=== PATIENT | male | born 1960 | race Caucasian/White ===

== ENCOUNTER 2017-02-02 10:55 | Day surgery (SDC) | payer OTHER ==
[~2017-02-02] VITALS: Ht 208.3 cm; Wt 95.2 kg
[~2017-02-02 10:55] MED LIST: 0.9% Sodium Chloride 1,000 ML IV PRN; LANS15TA3 PO; Sodium Chloride LOK Flush 10 mL Syringe IV PRN; fentaNYL-PF 50 mCg/mL 2 mL Inj IVPUSH PRN
[2017-02-02 12:50] VITALS: BP 110/76; PULSE 88; RESP 16; O2SAT 98
--- NOTE | 2017-02-02 13:45 | PCM.ENDEGD ---
EGD Date of Service: Feb 02, 2017 Physician Neo Stewart MD Pre Procedure Diagnosis: Reflux despite PPI Post Procedure Dx & Findings: Esophagitis Procedure Esophagogastroduodenoscopy PROCEDURE IN DETAIL: After proper sedation, Olympus video endoscope was inserted into patient's mouth and esophagus was successfully intubated. Scope introduced esophagus. Esophagus showed normal shiny whitish mucosa consistent with squamous cell component. Z line was irregular at 43 cm from the incisors. Also at the Z line , there was evidence of edema redness and some scarring. Biopsies obtained. Scope further advanced to the stomach. Stomach showed normal shiny mucosa with normal appearing rugae folds without any ulcer mass erosion. Cardia fundus body antrum pylorus were all visualized. Retroflexion was done. Stomach was easily inflated and deflatable using air. Scope further events to the distal duodenum. Duodenum revealed normal villous structures with normal appearing folds without any mass ulcer erosion. Impression Esophagitis Recommendation Continue PPI Follow-up in the GI clinic. Presedation Assessment Risks and Benefits Informed consent was obtained from the patient after all risks and benefits including but not limited to drug reaction, infection, pain, bleeding, perforation, as well as alternatives were discussed. Patient monitoring Continuous pulse oximetry, cardiac monitoring, blood pressure monitoring, IV access, and oxygen at 2L per nasal cannula. Periprocedural Fentanyl: Fentanyl 125mcg Incrementally Midazolam: Midazolam 6mg Incrementally Complications There were no periprocedural complications identified. Post Procedure Plan Post Procedure Recommendations 1. Restrict activities today. 2. Resume normal activities in the morning. 3. Resume medications. 4. GERD behavioral modification: - Avoid fatty, acidic, spicy, large meals - Do not lie down after meals - Do not eat or drink anything for at least 2 1/2 hours before going to bed at night - Discontinue tobacco and alcohol - Decrease or avoid caffeine - Avoid chocolate and mints - Decrease weight - Avoid aspirin and non steroidal anti-inflammatory agents (NSAID) such as Aleve, Advil, Mobic, Naproxen, Ibuprofen, etc 5. Add proton pump inhibitor. Take 30 minutes before 1st meal of the day. 6. Patient informed of normal post procedure side effects as bloating, drowsiness, blood streaking in the stool 7. If gastric biopsy reveal H.pylori, continue with appropriate treatment 8. If small bowel biopsy reveals celiac, continue with appropriate treatment 9. Please don't hesitate to call me with any questions Neo Stewart MD Feb 02, 2017 13:45
--- NOTE | 2017-02-02 14:04 | PCM.ENDCOL ---
Colonoscopy Date of Service: Feb 02, 2017 Physician Neo Stewart MD Pre Procedure Diagnosis: Screening Post Procedure Dx & Findings: Polyp hemorrhoids diverticuli Procedure Colonoscopy PROCEDURE IN DETAIL: Prep adequate Withdrawal time 11 minutes After unremarkable rectal examination the Olympus video colonoscope was inserted patient's anal canal and was advanced to cecum. Landmarks were identified including the ileocecal valve and appendiceal orifice. Scope was withdrawn systematically. Visualized colonic mucosa showed healthy shiny mucosa with normal healthy-appearing vasculature. In the sigmoid colon, there was a 1 mm polyp which was removed completely using hot snare. From the sigmoid colon to the descending colon, there were several needing sized diverticuli. Also to the ascending colon, there were isolated diverticuli small size. In the rectum retroflexion was done which showed hemorrhoids. Anal canal was inspected carefully on the way out and hemorrhoids noted. Impression Polyp 1 status post complete removal Diverticuli Hemorrhoids Recommendation Repeat colonoscopy in 3 years Diverticular diet Presedation Assessment Risks and Benefits Informed consent was obtained from the patient after all risks and benefits including but not limited to drug reaction, infection, pain, bleeding, perforation, as well as alternatives were discussed. Patient monitoring Continuous pulse oximetry, cardiac monitoring, blood pressure monitoring, IV access, and oxygen at 2L per nasal cannula. Periprocedural Fentanyl: Fentanyl 50mcg Incrementally Midazolam: Midazolam 1mg Incrementally Complications There were no periprocedural complications identified. Post Procedure Plan Post Procedure Recommendations 1. Restrict activities today. 2. Resume normal activities in the morning. 3. Resume medications. 4. Patient informed of normal post procedure side effects as bloating, drowsiness, blood streaking in the stool. 5. average risk CRCS. If colon polyps come back as: -Hyperplastic- can repeat colonoscopy in 10 years -Tubular adenoma- repeat colonoscopy in 5 years -Tubulovillous/villous adenoma- repeat colonoscopy in 3 years -If any dysplasia- return to clinic as soon as possible 6. Please don't hesitate to call me with any questions. Neo Stewart MD Feb 02, 2017 14:04
[2017-02-02 14:10] VITALS: BP 110/73; PULSE 69; RESP 16; O2SAT 96
[2017-02-02 14:23] VITALS: BP 103/67; PULSE 66; RESP 16; O2SAT 94
--- NOTE | 2017-02-06 15:24 | PATH ---
SURGICAL PATHOLOGY Attending Physician:Neo Stewart M.D. CASE STATUS: Signed Out PATIENT NAME: MARK ROACH PID: [id number] : 1960 DATE COLLECTED:02/02/2017 00:00 SPECIMEN: 1: Esophagus, Biopsy 2: Colon, Biopsy CLINICAL HISTORY: 1). DISTAL ESOPHAGUS BIOPSY 2). SIGMOID POLYP FINAL DIAGNOSIS: 1. Distal Esophagus, Biopsy: Squamocolumnar junctional mucosa with no diagnostic abnormality. Negative for intestinal metaplasia. Negative for dysplasia and malignancy. 2. Sigmoid Colon Polyp, Biopsy: Tubular adenoma. The excision appears complete. No evidence of malignancy or high-grade dysplasia. ICD10 D12.5 GROSS DESCRIPTION: The specimen is received in two formalin filled containers, ID confirmed by client. 1). The specimen is "distal esophagus" and consists of 2 portions of tissue which aggregate to 0.4 x 0.3 x 0.2 CM. The specimen is entirely submitted in cassette 1A. 2). The specimen is sublabeled "sigmoid polyp" and consists of a 0.6 x 0.6 x 0.5 CM portion of tissue. The specimen is bisected and entirely submitted in cassette 2A. 02/05/2017 [facility] ICD-9 CODES: CPT CODES: 1: 27249 2: 59136 Electronically Signed Out Latha Melissa MD [facility] Pathology [facility] [address], [place] [address] Technical component performed at [facility], [address] [place] [address] Ave[address], [place], [address]
== END 2017-02-02 23:59 | disposition home or self-care (01) ==
LOC: END 10:55
PROVIDERS: ATTEND Internal Medicine
DX: Z12.11 Encounter for screening for malignant neoplasm of colon (principal); D12.5 Benign neoplasm of sigmoid colon; K57.30 Diverticulosis of large intestine without perforation or abscess without bleeding; K64.8 Other hemorrhoids; K20.9 Esophagitis, unspecified; K21.9 Gastro-esophageal reflux disease without esophagitis
CPT/HCPCS: 43239; 45385; 88305; 99153; G0500; J7030

== ENCOUNTER → 2017-08-04 | Day surgery (SDC) | payer OTHER ==
[~2017-08-04] VITALS: Ht 185.4 cm; Wt 99.7 kg
[2017-08-04] VITALS (8 sets, daily range): BP systolic 121–138; BP diastolic 83–88; PULSE 78–97; RESP 11–24; O2SAT 93–96
[~2017-08-04] MED LIST changes: -0.9% Sodium Chloride 1,000 ML IV PRN; +Atropine 0.4 mg/mL Inj IVPUSH PRN; +Bupivacaine-MPF 0.5% 30 mL Inj INFILTRATE ONE; +Clindamycin Inj 900 MG in IV Premix 1 EACH IV ONE; +Dexamethasone 4 mg/mL Inj IVPUSH PRN; +EPHEDrine Sulfate 50 mg/mL Inj IVPUSH PRN; +HYDROmorphone 1 mg/mL Inj IVPUSH PRN; -LANS15TA3 PO; +LANS30CA15 PO; +Labetalol 5 mg/mL 20 mL Inj IV PRN; +Lactated Ringer's 1,000 ML IV SCH; +Lactated Ringer's 500 ML IV PRN; +Lidocaine MPF 2%-Epi 1:200,000 10 mL Inj INFILTRATE ONE; +MetoCLOpramide 5 mg/mL 2 mL Inj IVPUSH PRN; +ONDA4TAB9 PO; +OXYC5CAP4 PO; +Ondansetron 2 mg/mL 2 mL Inj IVPUSH PRN; +Ondansetron 2 mg/mL 2 mL Inj ONE; +Phenylephrine 10,000 mCg/mL Inj IVPUSH PRN; +Propofol 10,000 mCg/mL 20 mL Inj ONE; -Sodium Chloride LOK Flush 10 mL Syringe IV PRN; +Succinylcholine Chloride 20 mg/mL 5 mL Inj ONE; +fentaNYL-PF 50 mCg/mL 2 mL Inj ONE; +hydrALAZINE 20 mg/mL Inj IVPUSH PRN; +oxyCODONE-Acetamin 5-325 mg Tablet PO PRN
[2017-08-04] MEDS: Lactated Ringer's 1,000 ML IV SCH ×2 (08:34→09:12)
--- NOTE | 2017-08-04 08:58 | PCM.HPANE ---
Patient Data Date of Service: Aug 04, 2017 Surgeon Admitting Provider: Attending Provider:Ally Vasquez DPM Primary Care Physician:Krystian Anthony Other Provider:Leyla Olvera Anesthesia Reason for Visit Left Foot Metatarsalgia,Osteochondral Defect Ht/WT & BMI Height (Feet): 6 Height (Inches): 1 Weight (Kilograms): 99.7 Body Mass Index 29.00 Allergies Coded Allergies: bee venom protein (honey bee) (Verified Allergy, Severe, Rash and swelling , 07/31/17) Penicillins (Verified Allergy, Intermediate, Rash, 07/31/17) Past Anesthesia History Anesthesia History: Denies:: Anesthesia Reactions, Fam Anesthesia Reaction, Fam Malignant Hypertherm, Malignant Hyperthermia Diabetes History Hx Diabetes?: No MRSA MRSA: No Medications Home Meds Incl Beta Stef: No Reported Medications Ondansetron ODT (Zofran ODT)4 Mg Tablet4 Mg PO Q4H PRN For Nausea 07/31/17 oxyCODONE 5 Mg Capsule5 Mg PO Q4H PRN For Pain Ref 0 07/31/[address] (Prevacid)30 Mg [id number] Mg PO DAILY Ref 0 07/31/17 Discontinued Reported Medications Ibuprofen 600 Mg [id number] Mg PO DAILY PRN For Pain Ref 0 07/31/17 Lansoprazole ODT (Prevacid ODT)15 Mg [id number] Mg PO DAILY Ref 0 07/31/17 Lansoprazole ODT (Prevacid ODT)15 Mg [id number] Mg PO DAILY Ref 0 01/30/17 History History of ENT Problems?: No HEENT History: Denies:: Dysphagia Hearing Problem Denture Type: None Teeth Condition: Missing Teeth Hx of Heart Problems?: No Cardiovascular History: Denies:: Cardiac Surgery Hypertension Hx of Respiratory Problem?: No Respiratory History: Denies:: Hemoptysis Pneumonia Pulmonary Embolism Tuberculosis Use of C-PAP Machine Use of Inhalers / NEBS Hx Neurologic Problems?: Yes Neurological History: Positive for:: Dizziness (intermittent irrig ear bone) Denies:: Alzheimer's Disease CVA Dementia Headaches Parkinson's Disease Seizures TIA Hx of GI Problems?: Yes Gastrointestinal History: Positive for:: Gastroesphageal Reflux (medicated) Hx of Problems?: No Male Hx: Denies:: Prostate Problems Scrotal Mass Testicular Surgery Skin History: Denies:: History Skin Disorders? Pressure Ulcers Hx Musculoskeletal Problems?: Yes Musculoskeletal History: Positive for:: Musculoskeletal Trauma (fx neck, wrist , ribs) Osteoarthritis Denies:: Back Injury Degenerative Joint Joint Replacement Hx of Psycho/Social Problems?: No Psycho Social History: Denies:: Anxiety Hx Depression Hx Surgeries?: Yes (right wrist) Hx Any Other Health Problems?: Yes Other History: Denies:: Cancer Endocrine Disease Hospitalization Thyroid Disease History Blood Transfusions: Positive for:: Accept Blood Products? Denies:: Blood Transfusions Hx Diabetes: No Hx Alcohol Use: NoHx Substance Use: No Smoking Status: Never Smoker Stop/Bang S-Snoring: Do You Snore Loudly: No T-Tired: feel tired, fatigued: Yes O-Obsered: Observed not breath: No P-Blood Pressure: treated: No B- Body Mass Index > 35 kg/m2: No A- Age over 50: Yes N- Neck Large Circumference: No G- Gender Male: Yes ANGELINE Total Score: 3 ANGELINE Risk Assessment: High Risk, =/>3 Yes ANGELINE Category 4 OutPt Procedure: Yes Risk Assessment Category Category 1A: Patient has history of documented sleep apnea, and HAS NOT received any narcotic, sedative or anesthesia administration during this stay. Category 1B: Patient has history of documented sleep apnea, and HAS received any narcotic , sedative or anesthesia administration during this stay Category 2: Patient has SUSPECTED Obstructive Sleep Apnea, and HAS received any narcotic , sedative or anesthesia administration during this stay. Category 3: Patient has SUSPECTED Obstructive Sleep Apnea and HAS NOT received narcotic, sedative or anesthesia administration during this stay. Category 4: Outpatient in Procedural Areas with known sleep apnea or who screen positive for High Risk via the STOP/BANG questionnaire. Exam Exam Vital Signs Vital Signs Date Time Temp Pulse Resp B/P Pulse Ox O2 Delivery O2 Flow Rate FiO2 08/04/17 08:27 36.5 97 15 138/85 95 Room Air General Appearance: Alert, Oriented X3, Cooperative HEENT/AIRWAY: MP 2, Neck Movement (Full) Lungs: Clear to Auscultation, Normal Air Movement Heart: Regular Rate/Rhythm, Normal S1, Normal S2 Meds/Labs/Diagnostics Admission Meds Current Medications Lactated Ringer's (Lr) 1,000 ml @ 120 mls/hr Q8H20M IV Last administered on t 08:34; Start 08/04/17 at 05:00; Stop 08/04/17 at 13:19 Plan Impression Patient chart reviewed, patient interviewed and anesthestic plan with risks, benefits, and alternatives discussed, and informed consent obtained. ASA Physical Status: ASA2 Mod Systemic Disease Anesthetic Plan: GA Bene/Risks/Altern/Consents: Yes HP Complete Prior to Induction: Yes Other ETT due to Nicholas Archuleta MD Aug 04, 2017 08:57
--- NOTE | 2017-08-04 11:22 | PCM.PODPO ---
Podiatry Operative Report Date of Service: Aug 04, 2017 Date of Service Aug 04, 2017 Pre Operative Diagnosis #1 left ankle exostosis #2 left second metatarsal protrusion #3 left third metatarsal protrusion #4 ingrown toenail left medial hallux border #5 ingrown toenail right lateral hallux border Post Operative Diagnosis #1 left ankle exostosis #2 left second metatarsal protrusion #3 left third metatarsal protrusion #4 ingrown toenail left medial hallux border #5 ingrown toenail right lateral hallux border Procedure #1 left ankle exostectomy #2 left second metatarsal osteotomy #3 left third metatarsal osteotomy #4 ingrown toenail excision of left medial hallux border #5 ingrown toenail excision of right lateral hallux border Surgeon Surgeon: Ally Vasquze DPM Assistants: None Indication for Procedure Pain in the areas associated with the above diagnoses, interfering with the ability to ambulate. Findings Easily excised exostosis. Easily corrected second and third metatarsal protrusions. Resolved ingrown toenail. Details of Procedure The patient was identified in the preoperative holding area and brought back to the operating room. He was placed on the operating table in supine position. Gen. anesthesia was initiated and the time out protocol completed. The patients name and site of surgery were confirmed. The left lower extremity was prepped and draped in the usual aseptic manner. Local anesthetic was administered, containing epinephrine in the incisional area only for hemostasis. The ankle tourniquet was inflated to 250 mmHg. Bleeding vessels were cauterized as needed and neurovascular structures retracted where possible throughout the procedure. The first incision was made on the medial aspect of the ankle joint, medial to the tibialis anterior tendon. The linear incision was deepened bluntly to the joint capsule. The joint capsule was incised, then reflected anteriorly from the portion of bone containing the exostosis. An osteotome and mallet were used to resect the exostosis, following by rasping. Irrigation was performed with normal saline. Fluoroscopic guidance was used to confirm that the exostosis had been excised. The capsule was closed with 3-0 Vicryl. The skin was closed with 3-0 Prolene. The second incision was made on the dorsolateral aspect of the second metatarsal phalangeal joint, it was deepened bluntly, tendons and neurovascular structures were retracted. The second metatarsophalangeal joint capsule was incised laterally. It was reflected off of the dorsal aspect of the first second metatarsal head. The intermetatarsal structures were retracted, and through the same incision, the third metatarsophalangeal joint was incised medially and the joint capsule reflected off of the metatarsal head. A Sarah osteotomy was performed from distal dorsal to proximal plantar across the metatarsal heads and necks for each of the metatarsals respectively. Temporary fixation was done with the K wire and confirmed fluoroscopically. Cortical fixation was obtained using 2.0 mm screws, one with compression lag screw through technique and one with a neutralization technique for each metatarsal. The overhanging dorsal portion of the cortex and cartilaginous lip were excised using a Rongeur. Irrigation was performed with normal saline. The deep soft tissue was reapproximated with Vicryl suture, the skin closed with Prolene. The offending medial border of the left hallux nail was excised, full-thickness through the toenail, the nail bed, the nail matrix, and partially periosteal tissue in a wedge resection, using straight iris scissors, a #15 scalpel, and forceps. After irrigation, the skin was closed with a semi-a subcuticular horizontal stitch to avoid further ingrowing of the remaining nail. The same procedure was repeated for the lateral border of the right hallux nail. Dressing consisted of sterile gauze and Coban on the right. Dressing on the left consisted of sterile silk, saline moistened gauze, Kerlix and lightly compressed David wrap all the way to the knee. The patient's left lower extremity was placed into a surgical boot, while still under anesthesia. The patient was weaned off of anesthesia and transported to Day Surgery with vital signs stable and vascular status to the operative foot intact. Grafts, Implants: Implants-See Implant Record Complications There were no periprocedural complications identified. Condition Stable Anesthetic Administered: GA Drains: None Catheters: None Output, Estimated Blood Loss: 10 (ml) Blood Admin during surgery: No Surgical Cast or Splint: Post-op Boot Surgical Specimen Removed: No Specimen sent to Pathology: No Post Operative Plan Weightbearing as tolerated in a postoperative boot, oral pain medication as needed. The dressing is to stay clean, dry, and intact until the patient's follow-up visit. Ally Vasquez DPM Aug 04, 2017 11:22
--- NOTE | 2017-08-04 11:33 | PCM.ANEP1 ---
Post Anesthesia PACU Phase 1 Assessment Date of Service: Aug 04, 2017 Vital Signs Vital Signs Date Time Temp Pulse Resp B/P Pulse Ox O2 Delivery O2 Flow Rate FiO2 08/04/17 11:29 37 82 22 121/87 93 Room Air 08/04/17 11:25 83 11 121/88 94 Room Air 08/04/17 11:20 81 15 124/83 96 Room Air 08/04/17 11:16 85 17 128/83 95 Room Air 08/04/17 11:10 88 24 127/83 95 Room Air 08/04/17 11:06 36 84 19 126/88 96 Room Air 08/04/17 08:27 36.5 97 15 138/85 95 Room Air Anesthetic Administered: GA Level of Alertness: Awake, talking FIELD's with Equal Strength: Yes Pain: No Nausea or Vomiting: No CV Function & Hydration Stable: Yes Airway Device: Oxygen Delivery: Room Air Lungs: Normal Air Movement PACU Phase 2 Assessment Complications: No Follow up Care: N/A Patient Instructions Provided: N/A Nicholas Caruso MD Aug 04, 2017 11:32
== END | disposition home or self-care (01) ==
LOC: SAS 08:08
PROVIDERS: ATTEND Podiatrist
DX: M89.8X7 Other specified disorders of bone, ankle and foot (principal); M77.42 Metatarsalgia, left foot; M77.41 Metatarsalgia, right foot; L60.0 Ingrowing nail; M95.8 Other specified acquired deformities of musculoskeletal system; K21.9 Gastro-esophageal reflux disease without esophagitis; K20.9 Esophagitis, unspecified; M19.90 Unspecified osteoarthritis, unspecified site
CPT/HCPCS: 11750; 27620; 28308; 76000; C1713; J0330; J2250; J2405; J2704; J3010; J3490; J7120